=== PATIENT | male | born 1975 | race African-American/Black ===

== ENCOUNTER 2019-12-11 08:40 | Emergency (ER) | payer MEDICAID ==
[~2019-12-11] VITALS: Ht 177.8 cm; Wt 118.2 kg
[2019-12-11 08:56] VITALS: BP 141/84; Ht 177.8 cm; Wt 118.2 kg
[2019-12-11] MEDS ORDERED: NORVASC5 MG PO ×2 (09:00→09:18)
[2019-12-11] MEDS ORDERED: TENORMIN100 MG PO ×2 (09:00→09:18)
== END 2019-12-11 09:38 | disposition home or self-care (01) ==
LOC: D.ER 08:40
DX: Z76.0 Encounter for issue of repeat prescription (principal); I10 Essential (primary) hypertension